=== PATIENT | female | born 2000 | race Caucasian/White ===

== ENCOUNTER 2023-05-12 18:54 | Emergency (ER) | payer MEDICAID, OTHER ==
[~2023-05-12] VITALS: Ht 162.6 cm; Wt 72.6 kg
[2023-05-12 19:15] VITALS: BP_SYST 143; PULSE 105; RESP 16; TEMP 98.9; O2SAT 98
[2023-05-12 20:25] LABS: INFLUENZA TYPE A Negative (NEGATIVE)
[2023-05-12 20:27] LABS: INFLUENZA TYPE B POSITIVE (NEGATIVE)
[2023-05-12] MEDS ORDERED: OSEL75CA PO (20:45)
[2023-05-12] MEDS ORDERED: IBUP-1969 PO (20:45)
[2023-05-12 20:52] VITALS: BP_SYST 139; PULSE 102; RESP 16; TEMP 97.9; O2SAT 100
== END 2023-05-12 20:52 | disposition home or self-care (01) ==
LOC: SED 18:54
DX: J10.1 Influenza due to other identified influenza virus with other respiratory manifestations (principal); R05.9 Cough, unspecified; R09.81 Nasal congestion; J45.909 Unspecified asthma, uncomplicated; Z79.899 Other long term (current) drug therapy; Z20.822 Contact with and (suspected) exposure to COVID-19
CPT/HCPCS: 36415; 71045; 99284

== ENCOUNTER 2023-09-04 19:59 | Emergency (ER) | payer OTHER ==
[~2023-09-04] VITALS: Ht 162.6 cm; Wt 99.8 kg
[~2023-09-04 19:59] MED LIST: IBUP-1969 PO; OSEL75CA PO
[2023-09-04 20:03] VITALS: BP_SYST 107; PULSE 103; RESP 20; TEMP 98.7; O2SAT 98
[2023-09-04 21:32] LABS: INFLUENZA TYPE A Negative (NEGATIVE); INFLUENZA TYPE B NEGATIVE (NEGATIVE)
[2023-09-04] MEDS: ACETAMINOPHEN 500 MG TABLET PO ONE (22:33)
[2023-09-04 23:18] LABS: BASOPHILS # (AUTO) 0.1 K/uL (0.0-0.2); BASOPHILS % (AUTO) 1.2 % (0.0-2.0); EOSINOPHILS # (AUTO) 0.2 K/uL (0.0-0.4); EOSINOPHILS % (AUTO) 1.4 % (0.0-4.0); HEMATOCRIT 41.2 % (36-48); HEMOGLOBIN 13.9 g/dL (12.0-16.0); LYMPHOCYTES # (AUTO) 2.5 K/uL (1.0-5.5); LYMPHOCYTES % (AUTO) 21.1 % (20.5-51.5); MEAN CORPUSCULAR HEMOGLOBIN 30 pg (27-31); MEAN CORPUSCULAR HGB CONC 34 % (32-36); MEAN CORPUSCULAR VOLUME 89 fL (79.0-98.0); MONOCYTES # (AUTO) 0.9 K/uL (0.0-1.0); MONOCYTES % (AUTO) 7.4 % (1.7-9.3); NEUTROPHILS # (AUTO) 8.3 K/uL (1.8-7.7); NEUTROPHILS % (AUTO) 68.9 % (40.0-70.0); PLATELET COUNT (AUTO) 347 K/uL (130-430); RED BLOOD CELL COUNT(AUTO) 4.61 MIL/uL (4.2-6.2); RED CELL DISTRIBUTION WIDTH 14.2 % (9.0-15.0); WHITE BLOOD COUNT (AUTO) 12.1 K/uL (4.8-10.8)
[2023-09-04 23:44] LABS: CALCIUM 9.3 mg/dL (8.4-11.0); POTASSIUM 3.6 mmol/L (3.5-5.1)
[2023-09-04 23:48] LABS: ALBUMIN 4.1 g/dL (3.4-4.8); BILIRUBIN,DIRECT 0.1 mg/dL (0.0-0.3); TOTAL BILIRUBIN 0.4 mg/dL (0.0-1.0)
[2023-09-05 00:16] VITALS: BP_SYST 136; PULSE 86; RESP 16; TEMP 98.5; O2SAT 98
== END 2023-09-05 00:18 | disposition home or self-care (01) ==
LOC: SED 19:59
DX: A08.4 Viral intestinal infection, unspecified (principal); R51.9 Headache, unspecified; J45.909 Unspecified asthma, uncomplicated; Z79.899 Other long term (current) drug therapy; Z20.822 Contact with and (suspected) exposure to COVID-19
CPT/HCPCS: 36415; 80048; 80076; 85025; 99283